=== PATIENT | female | born 1970 | race Caucasian/White ===

== ENCOUNTER 2017-09-19 08:51 | Inpatient (IN) | payer BC, OTHER ==
[~2017-09-19] VITALS: Ht 154.9 cm; Wt 91.6 kg
--- NOTE | ~2017-09-19 | H ---
[facility] [place] [address] HISTORY AND PHYSICAL Name: MARYANNE LUKE Room #: 443-P [facility] M.R.#: [id number] Admission: 09/19/17 Attend Phys: Renzo Griffin MD Discharge: 09/20/17 Date of : 72 Report #: [id number] THIS REPORT FOR: //name// CC: Hector Griffin DATE OF SERVICE: 09/19/2017 CHIEF COMPLAINT: Cough and shortness of air. HISTORY OF PRESENT ILLNESS: The patient is a 47-year-old female who was seen by my nurse practitioner, Hector Berkowitz for this cough and shortness of air. She had been sick for over a week and been getting progressively more short of air. She had had influenza and was treated with Tamiflu and continued to get worse in spite of that. PAST MEDICAL HISTORY: Depression. MEDICATIONS: She does have Zoloft 100 mg a day. PHYSICAL EXAMINATION: VITAL SIGNS: Blood pressure was 140/90, pulse was 84, respiratory rate 16, temperature is 99.6. O2 sat was 93% on room air, but dropped to 87% with ambulating more than 20 feet. She has very slowly recovered to about 91-92% after that ambulation. ENT: Her mucous membranes are dry. NECK: Supple, without adenopathy, thyromegaly or bruits. CHEST: Coarse bilaterally with some crackles and wheezes bilaterally. CARDIOVASCULAR: Regular rhythm with no murmur. ABDOMEN: Soft, not distended, nontender, no masses. Bowel sounds are active. EXTREMITIES: No edema. Pulses are intact. Cap refill is less than 2 seconds. DIAGNOSTIC DATA: Chest x-ray shows extensive infiltrates bilaterally with concerns for underlying process per Radiology. ASSESSMENT AND PLAN: 1. Pneumonia post influenza. She is too sick with the hypoxia, treated as an outpatient. We will admit. Started on IV Levaquin, IV fluids, breathing treatments. Get a CBC and a BNP. 2. For depression, we will renew her sertraline. <ELECTRONICALLY SIGNED> By: Renzo Griffin MD 09/21/17 0826 [id number] Renzo Griffin MD /nt
[2017-09-19 12:22] LABS: HEMATOCRIT 30.7 % (37.0-47.0); MCH 23.4 pg (26.0-34.0); MCHC 32.6 g/dL (28.0-37.0); MCV 71.6 fL (80.0-100.0); RBC 4.28 mil/uL (4.20-5.00); RDW 16.7 % (10.5-14.5); WBC 6.1 thou/uL (4.0-11.0)
[2017-09-19 12:26] LABS: CALCIUM 8.4 mg/dL (8.5-10.1); CREATININE 0.7 mg/dL (0.6-1.0); POTASSIUM 3.2 mmol/L (3.5-5.1)
[2017-09-19 13:07] VITALS: BP 161/91
[2017-09-19] MEDS ORDERED: ZOLOFT50 MG PO (13:32)
[2017-09-19] MEDS ORDERED: [UNRECOGNIZED DRUG - OTHER] (13:34)
[2017-09-19] MEDS ORDERED: ACCUNEB SO1.25 MG/1 (13:35)
[2017-09-19 15:45] VITALS: BP 148/82
[2017-09-19 20:58] VITALS: BP 172/93
[2017-09-20 04:40] VITALS: BP 139/80
[2017-09-20] MEDS ORDERED: GUAIFENESIN/COD10 M1 PO (07:58)
[2017-09-20] MEDS ORDERED: LEVAQUIN 500 M500 M2 PO (07:58)
[2017-09-20 08:25] LABS: CALCIUM 8.2 mg/dL (8.5-10.1); CREATININE 0.6 mg/dL (0.6-1.0); POTASSIUM 3.6 mmol/L (3.5-5.1)
[2017-09-20 11:47] VITALS: BP 139/80
== END 2017-09-20 17:38 | disposition home or self-care (01) | DRG 195 ==
LOC: RAD 08:51 → EROBS 10:54 → 4S 10:54 → ENTRNSPT 09-20 16:34 → 4S 09-20 17:38
PROVIDERS: Family Medicine
DX: J18.9 Pneumonia, unspecified organism (principal); F32.9 Major depressive disorder, single episode, unspecified; Z28.21 Immunization not carried out because of patient refusal
CPT/HCPCS: 10100

== ENCOUNTER → 2017-09-22 | Outpatient (CLI) | payer BC, OTHER ==
[~2017-09-22] MED LIST: ACCUNEB SO1.25 MG/1; GUAIFENESIN/COD10 M1 PO; LEVAQUIN 500 M500 M2 PO; ZOLOFT50 MG PO; [UNRECOGNIZED DRUG - OTHER]
== END ==
LOC: RAD 10:28
DX: J18.9 Pneumonia, unspecified organism (principal); R09.02 Hypoxemia

== ENCOUNTER → 2017-09-30 | Outpatient (CLI) | payer BC, OTHER | LOC: RAD 08:02 | DX: J18.9 Pneumonia, unspecified organism (principal) ==

== ENCOUNTER → 2021-03-26 | Outpatient (CLI) | payer OTHER | LOC: CAT 12:01 | DX: Z13.6 Encounter for screening for cardiovascular disorders (principal); E78.00 Pure hypercholesterolemia, unspecified; I25.10 Atherosclerotic heart disease of native coronary artery without angina pectoris ==